=== PATIENT | male | born 1960 | race Caucasian/White ===

== ENCOUNTER → 2020-06-24 | Outpatient (CLI) | payer BC ==
--- NOTE | 2020-06-24 14:16 | Diagnostic Imaging Report ---
INDICATION: Left ankle pain. TIME OF EXAM: 1:59 PM. FINDINGS: Two views of the left ankle were obtained. The ankle mortise is well maintained. The talar dome is smooth. Well-corticated osseous densities adjacent to the medial malleolus are noted, consistent with old avulsions. No acute fracture is identified. There is a moderate-sized plantar calcaneal spur. IMPRESSION: Chronic changes. No acute bony abnormality is detected. Dictated by: Dictated on workstation # [id number]
== END ==
LOC: RAD FS 13:50
PROVIDERS: ATTEND Family Medicine
DX: M25.572 Pain in left ankle and joints of left foot (principal)
CPT/HCPCS: 73600

== ENCOUNTER 2020-12-29 08:42 | Emergency (ER) | payer BC ==
[~2020-12-29] VITALS: Ht 172 cm; Wt 104.0 kg
--- NOTE | 2020-12-29 09:05 | ED Respiratory ---
General Chief Complaint: Respiratory Problems Stated Complaint: SOB; COVID+ Source: patient Exam Limitations: no limitations History of Present Illness Date Seen by Provider: Dec 29, 2020 Time Seen by Provider: 08:50 Initial Comments 60-year-old male presents with increasing shortness of air over the past 1 week. Diagnosed with COVID-19 5 days ago 2 days after having symptoms. Was diagnosed in [facility] and had a phone call from the health department was advised to stay home and told that a local health department in [place] would give him a call, although he never received a call from anyone. Complains of intermittent shortness of air without wheezing, a persistent cough without productive sputum. Denies fever or chills, but does have body aches. Some weakness and fatigue. Medical history significant for hypertension, hypercholesterolemia and sleep apnea Allergies and Home Medications Allergies Coded Allergies: No Known Drug Allergies (Unverified , 12/29/20) Home Medications Ivermectin 3 Mg Tablet, 21 MG PO DAILY PRN Prescribed by: YARELY TOMAS on 12/29/20 1000 Patient Home Medication List Home Medication List Reviewed: Yes Review of Systems Review of Systems Constitutional: No chills, No fever; malaise; No weakness EENTM: no symptoms reported Respiratory: cough, dyspnea on exertion; No hemoptysis, No phlegm; short of breath; No stridor, No wheezing Cardiovascular: No chest pain, No edema, No palpitations, No syncope Gastrointestinal: No abdominal pain; diarrhea, loss of appetite; No nausea, No vomiting Musculoskeletal: No back pain, No joint pain Skin: No change in color, No rash Past Mwjatzw-Coicrq-Dmcuzr Hx Past Med/Social Hx: Reviewed Nursing Past Med/Soc Hx Patient Social History Alcohol Use: Denies Use Smoking Status: Never a Smoker Type Used: Smokeless Tobacco Physical Exam Vital Signs - First Documented 12/29/20 08:57 Temp 37.6 Pulse 78 Resp 18 B/P (MAP) 168/97 (120) Pulse Ox 96 O2 Delivery Room Air Capillary Refill : Height: '" Weight: lbs. oz. kg; BMI Method: General Appearance: WD/WN, no apparent distress Eyes: Bilateral Eye Normal Inspection, Bilateral Eye PERRL, Bilateral Eye EOMI HEENT: PERRL/EOMI, normal ENT inspection Neck: non-tender, supple Respiratory: chest non-tender, lungs clear, normal breath sounds, no resp iratory distress, no accessory muscle use Cardiovascular: regular rate, rhythm, no edema, no JVD Gastrointestinal: normal bowel sounds, non tender, soft, no organomegaly, no pulsatile mass Extremities: normal range of motion, non-tender, no pedal edema Neurologic/Psychiatric: no motor/sensory deficits, alert, normal mood/affect, oriented x 3 Skin: normal color, warm/dry Focused Exam Lactate Level 12/29/20 09:04: Lactic Acid Level 0.87 Lactic Acid Level Laboratory Tests Test 12/29/20 09:04 Lactic Acid Level 0.87 MMOL/L (0.50-2.00) Progress/Results/Core Measures Suspected Sepsis SIRS Temperature: Pulse: Respiratory Rate: Laboratory Tests 12/29/20 09:04: White Blood Count 3.5L Blood Pressure / Mean: 12/29/20 09:04: Lactic Acid Level 0.87 Laboratory Tests 12/29/20 09:04: Creatinine 0.96, Platelet Count 146, Total Bilirubin 0.5 Results/Orders Lab Results Laboratory Tests Test 12/29/20 09:04 Range/Units White Blood Count 3.5 L 4.3-11.0 10^3/uL Red Blood Count 4.84 4.35-5.85 10^6/uL Hemoglobin 14.9 13.3-17.7 G/DL Hematocrit 42 40-54 % Mean Corpuscular Volume 87 80-99 FL Mean Corpuscular Hemoglobin 31 25-34 PG Mean Corpuscular Hemoglobin Concent 35 32-36 G/DL Red Cell Distribution Width 12.5 10.0-14.5 % Platelet Count 146 130-400 10^3/uL Mean Platelet Volume 9.3 7.4-10.4 FL Immature Granulocyte % (Auto) 0 % Neutrophils (%) (Auto) 68 42-75 % Lymphocytes (%) (Auto) 23 12-44 % Monocytes (%) (Auto) 6 0-12 % Eosinophils (%) (Auto) 2 0-10 % Basophils (%) (Auto) 0 0-10 % Neutrophils # (Auto) 2.4 1.8-7.8 X 10^3 Lymphocytes # (Auto) 0.8 L 1.0-4.0 X 10^3 Monocytes # (Auto) 0.2 0.0-1.0 X 10^3 Eosinophils # (Auto) 0.1 0.0-0.3 10^3/uL Basophils # (Auto) 0.0 0.0-0.1 10^3/uL Immature Granulocyte # (Auto) 0.0 0.0-0.1 10^3/uL Sodium Level 140 135-145 MMOL/L Potassium Level 4.1 3.6-5.0 MMOL/L Chloride Level 106 98-107 MMOL/L Carbon Dioxide Level 23 21-32 MMOL/L Anion Gap 11 5-14 MMOL/L Blood Urea Nitrogen 17 7-18 MG/DL Creatinine 0.96 0.60-1.30 MG/DL Estimat Glomerular Filtration Rate > 60 BUN/Creatinine Ratio 18 Glucose Level 110 H 70-105 MG/DL Lactic Acid Level 0.87 0.50-2.00 MMOL/L Calcium Level 9.6 8.5-10.1 MG/DL Corrected Calcium 9.4 8.5-10.1 MG/DL Total Bilirubin 0.5 0.1-1.0 MG/DL Aspartate Amino Transf (AST/SGOT) 64 H 5-34 U/L Alanine Aminotransferase (ALT/SGPT) 115 H 0-55 U/L Alkaline Phosphatase 78 40-136 U/L Troponin I < 0.30 <0.30 NG/ML Pro-B-Type Natriuretic Peptide 30.4 <75.0 PG/ML Total Protein 7.3 6.4-8.2 GM/DL Albumin 4.2 3.2-4.5 GM/DL My Orders Orders - ROVENSTINE,YARELY L DO Cbc With Automated Diff (12/29/20 09:05) Comprehensive Metabolic Panel (12/29/20 09:05) Ed Iv/Invasive Line Start (12/29/20 09:05) Troponin I Fs (12/29/20 09:05) Probnp Fs (12/29/20 09:05) Lactic Acid Analyzer (12/29/20 09:05) Fibrin Degradation Products (12/29/20 09:05) Chest 1 View Ap/Pa Only (12/29/20 09:05) Albuterol/Ipra Inhalation Soln (Duoneb I (12/29/20 09:15) Methylprednisolone Sod Succ (Solu-Medrol (12/29/20 09:15) Svn Small Volume Nebulizer (12/29/20 09:05) Medications Given in ED Current Medications Medications Dose Ordered Sig/Candy Route Start Time Stop Time Status Last Admin Dose Admin Albuterol/ Ipratropium 3 ml ONCE ONCE INH 12/29/20 09:15 12/29/20 09:16 DC 12/29/20 09:15 3 ML Methylprednisolone Sodium Succinate 80 mg ONCE ONCE IV 12/29/20 09:15 12/29/20 09:16 DC 12/29/20 09:14 80 MG Vital Signs/I&O 12/29/20 12/29/20 08:57 10:24 Temp 37.6 36.8 Pulse 78 75 Resp 18 18 B/P (MAP) 168/97 (120) 168/89 (120) Pulse Ox 96 96 O2 Delivery Room Air Room Air Capillary Refill : Progress Note : Progress Note Patient with Covid symptoms for over a week and complaints of shortness of air intermittently. In the ER his vital signs of been stable and his oxygen saturation has been 95% or greater on room air the entire time. His labs are within normal limits and his chest x-ray was clear without any infiltrate. Patient with some symptomatic improvement after DuoNeb and Solu-Medrol. He is out of the window for "outpt BAM tx". Discussed options for outpatient therapy to help with his symptoms, instructions given and prescription sent to [facility]. Patient agrees with this treatment plan will follow up with his PCP as needed and return to the ER if his symptoms progress. Diagnostic Imaging Diagonstic Imaging: Xray Plain Films/CT/US/NM/MRI: chest Comments Date of Exam:12/29/20 CHEST 1 VIEW AP/PA ONLY INDICATION: Shortness of breath, cough, Covid. FINDINGS: The lungs are clear. No infiltrate, effusion or pneumothorax. IMPRESSION: No acute appearing abnormality. Dictated on workstation # [id number] Dict: 12/29/20929 Trans: 12/29/20930 TANIYA [id number] Interpreted by: RUPERT MOTA Electronically signed by: Jamil Impression Primary Impression: COVID-19 Disposition: 01 HOME, SELF-CARE Condition: Stable Departure-Patient Inst. Referrals: NOAH JUSTICE MD (PCP/Family) Primary Care Physician Add. Discharge Instructions: Take the following Over the counter vitamins/ medications as directed: 1. Vitamin D 4,000iu once daily 2. Vitamin C 2,000mg twice daily 3. Quercetin 250mg twice daily 4. Zinc 100mg daily 5. Melatonin 10mg at bedtime 6. Aspirin 325mg daily for 2 weeks (unless your Primary doctor has told you not to take aspirin) All discharge instructions reviewed with patient and/or family. Voiced understanding. Scripts Ivermectin (Ivermectin) 3 Mg Tablet 21 MG PO DAILY PRN, #14 TAB Prov: YARELY TOMAS DO 12/29/20 YARELY TOMAS DO Dec 29, 2020 09:05
[2020-12-29 09:15] LABS: HEMATOCRIT 42 % (40-54); HEMOGLOBIN 14.9 G/DL (13.3-17.7); MEAN CORPUSCULAR HEMOGLOBIN 31 PG (25-34); WHITE BLOOD COUNT 3.5 10^3/uL (4.3-11.0)
[2020-12-29] MEDS ORDERED: methylPREDNISolone 40 MG/ML (Solu-MEDROL) VIAL IV ONE (09:15)
[2020-12-29] MEDS ORDERED: RT-ALBUTEROL/IPRATROPIUM 3 ML (DUONEB) VIAL INH ONE (09:15)
[2020-12-29 09:16] LABS: BASOPHILS % (AUTO) 0 % (0-10); EOSINOPHILS % (AUTO) 2 % (0-10); LYMPHOCYTES # (AUTO) 0.8 X 10^3 (1.0-4.0); LYMPHOCYTES % (AUTO) 23 % (12-44); MEAN CORPUSCULAR HGB CONC 35 G/DL (32-36); MEAN CORPUSCULAR VOLUME 87 FL (80-99); MEAN PLATELET VOLUME 9.3 FL (7.4-10.4); MONOCYTES % (AUTO) 6 % (0-12); NEUTROPHILS # (AUTO) 2.4 X 10^3 (1.8-7.8); NEUTROPHILS % (AUTO) 68 % (42-75); PLATELET COUNT 146 10^3/uL (130-400)
[2020-12-29 09:17] LABS: EOSINOPHILS # (AUTO) 0.1 10^3/uL (0.0-0.3); MONOCYTES # (AUTO) 0.2 X 10^3 (0.0-1.0)
--- NOTE | 2020-12-29 09:32 | Diagnostic Imaging Report ---
INDICATION: Shortness of breath, cough, Covid. FINDINGS: The lungs are clear. No infiltrate, effusion or pneumothorax. IMPRESSION: No acute appearing abnormality. Dictated by: Dictated on workstation # [id number]
[2020-12-29 09:42] LABS: ALANINE AMINOTRANSFERASE 115 U/L (0-55); ALKALINE PHOSPHATASE 78 U/L (40-136); BILIRUBIN,TOTAL 0.5 MG/DL (0.1-1.0); BUN/CREATININE RATIO 18; CALCIUM 9.6 MG/DL (8.5-10.1); CARBON DIOXIDE 23 MMOL/L (21-32); CHLORIDE 106 MMOL/L (98-107); CREATININE SERUM 0.96 MG/DL (0.60-1.30); GFR ESTIMATED > 60; GLUCOSE 110 MG/DL (70-105); POTASSIUM 4.1 MMOL/L (3.6-5.0); SODIUM 140 MMOL/L (135-145); TOTAL PROTEIN 7.3 GM/DL (6.4-8.2)
[2020-12-29 09:43] LABS: ALBUMIN 4.2 GM/DL (3.2-4.5)
[2020-12-29] MEDS ORDERED: IVER3TAB2 PO (10:00)
[2020-12-29 10:24] VITALS: BP 168/89
== END 2020-12-29 10:23 | disposition home or self-care (01) ==
LOC: EDUNIT# 08:42 → ER FS 08:44
DX: U07.1 COVID-19 (principal); Z73.0 Burn-out
CPT/HCPCS: 36415; 71045; 80053; 83605; 83880; 84484; 85025; 85379

== ENCOUNTER → 2021-06-13 | Outpatient (CLI) | payer BC ==
[~2021-06-13] MED LIST: IVER3TAB2 PO
[2021-06-13 08:39] LABS: ALBUMIN 4.3 GM/DL (3.2-4.5); BILIRUBIN,TOTAL 0.8 MG/DL (0.1-1.0); CALCIUM 9.6 MG/DL (8.5-10.1); CREATININE SERUM 1.21 MG/DL (0.60-1.30); POTASSIUM 4.3 MMOL/L (3.6-5.0); TOTAL PROTEIN 6.8 GM/DL (6.4-8.2)
[2021-06-13 12:03] LABS: CHOLESTEROL 141 MG/DL (< 200); HDL CHOLESTEROL 46 MG/DL (40-60); TRIGLYCERIDES 86 MG/DL (<150); VLDL CHOLESTEROL 17 MG/DL (5-40)
== END ==
LOC: LAB FS 07:59
PROVIDERS: ATTEND Registered Nurse Emergency
DX: Z00.00 Encounter for general adult medical examination without abnormal findings (principal)
CPT/HCPCS: 36415; 80053; 80061

== ENCOUNTER → 2022-02-18 | Outpatient (CLI) | payer BC ==
--- NOTE | 2022-02-18 16:03 | Diagnostic Imaging Report ---
INDICATION: Hypertension and shortness of breath. PA and lateral chest Heart size and pulmonary vascularity are normal. Lungs are clear. There are no effusions or pneumothoraces. IMPRESSION: No acute abnormalities in the chest. Dictated by: Dictated on workstation # [id number]
== END ==
LOC: RAD FS 14:34
PROVIDERS: ATTEND Family Medicine
DX: I10 Essential (primary) hypertension (principal); R06.02 Shortness of breath; R06.09 Other forms of dyspnea
CPT/HCPCS: 71046

== ENCOUNTER 2023-03-28 01:10 | Emergency (ER) | payer BC ==
[~2023-03-28] VITALS: Ht 172 cm; Wt 117.9 kg
[2023-03-28] MEDS ORDERED: NITROGLYCERIN 0.4 MG SL TABS BTL 25'S SL PRN (01:30)
[2023-03-28] MEDS ORDERED: ASPIRIN 81 MG CHEW (CHILDREN'S ASA) PO ONE (01:30)
[2023-03-28 01:34] LABS: BASOPHILS # (AUTO) 0.1 10^3/uL (0.0-0.1); BASOPHILS % (AUTO) 1 % (0-10); EOSINOPHILS # (AUTO) 0.5 10^3/uL (0.0-0.3); EOSINOPHILS % (AUTO) 9 % (0-10); HEMATOCRIT 42 % (40-54); HEMOGLOBIN 14.8 g/dL (13.3-17.7); LYMPHOCYTES % (AUTO) 34 % (12-44); MEAN CORPUSCULAR HEMOGLOBIN 33 pg (25-34); MEAN CORPUSCULAR HGB CONC 36 g/dL (32-36); MEAN CORPUSCULAR VOLUME 92 fL (80-99); MEAN PLATELET VOLUME 10.2 fL (9.0-12.2); MONOCYTES # (AUTO) 0.5 10^3/uL (0.0-1.0); MONOCYTES % (AUTO) 8 % (0-12); NEUTROPHILS # (AUTO) 2.8 10^3/uL (1.8-7.8); NEUTROPHILS % (AUTO) 48 % (42-75); PLATELET COUNT 143 10^3/uL (130-400); WHITE BLOOD COUNT 5.9 10^3/uL (4.3-11.0)
[2023-03-28 02:02] LABS: FIBRIN DEGRADATION PRODUCTS 0.31 UG/ML (0.00-0.49); PROTHROMBIN TIME PATIENT 13.4 SEC (12.2-14.7)
[2023-03-28 02:08] LABS: ALANINE AMINOTRANSFERASE 25 U/L (0-55); ALKALINE PHOSPHATASE 78 U/L (40-136); BILIRUBIN,TOTAL 0.6 MG/DL (0.1-1.0); BUN/CREATININE RATIO 17; CALCIUM 10.1 MG/DL (8.5-10.1); CARBON DIOXIDE 24 MMOL/L (21-32); CHLORIDE 107 MMOL/L (98-107); CREATININE SERUM 1.21 MG/DL (0.60-1.30); GFR ESTIMATED 68; GLUCOSE 126 MG/DL (70-105); POTASSIUM 3.5 MMOL/L (3.6-5.0); SODIUM 140 MMOL/L (135-145)
[2023-03-28 02:09] LABS: ALBUMIN 4.1 GM/DL (3.2-4.5); LIPASE 78 U/L (8-78); TOTAL PROTEIN 6.4 GM/DL (6.4-8.2)
--- NOTE | 2023-03-28 02:53 | ED Chest Pain ---
General Chief Complaint: Chest Pain Stated Complaint: CHEST PAIN| RIGHT ARM PAIN Nursing Triage Note: PAITIENT STATES WOKE UP 20 [employer] WITH CHEST PAIN, RT ARM PAIN, AND ALEJANDRO LEG TINGLING. PATIENT STATES CONCERN DUE TO FAMILY AND HX OF STENTS. DENIES SOB Source: patient, RN notes reviewed Exam Limitations: no limitations History of Present Illness Date Seen by Provider: Mar 28, 2023 Time Seen by Provider: 01:13 Initial Comments 62-year-old male patient with history of hypertension, hyperlipidemia, GERD, coronary artery disease a status post stent placement in 2009 presented POV because of chest pain. Patient stated he went to bed around 2200 last night and woke up around 1 AM with pressure substernal chest pain and right arm numbness and rated his pain 5/10 that decreased to 3 or 4 at arrival to ER with rest. Patient denies new shortness of breath, palpitation, nausea, dizziness. Patient stated he has had intermittent episodes of shortness of breath for the last 6 months. Patient had blood pressure of 190s at arrival to ER and stated he did not missed his medication. Allergies and Home Medications Allergies Coded Allergies: No Known Drug Allergies (Unverified , 12/29/20) Patient Home Medication List Home Medication List Reviewed: Yes Amlodipine Besylate (Amlodipine Besylate) 10 Mg Tablet, 10 MG PO DAILY, (Reported) Entered as Reported by: SANTOS VALENZUELA on 03/28/23417 Last Action: New Order Carvedilol (Carvedilol) 12.5 Mg Tablet, 12.5 MG PO BID, (Reported) Entered as Reported by: SANTOS VALENZUELA on 03/28/23417 Last Action: New Order Celecoxib (Celecoxib) 200 Mg Capsule, 200 MG PO DAILY, (Reported) Entered as Reported by: SANTOS VALENZUELA on 03/28/23417 Last Action: New Order Discontinued Medications Ivermectin (Ivermectin) 3 Mg Tablet, 21 MG PO DAILY PRN Discontinued Reason: Referral/FU Appt-Addtl Prescribed by: YARELY TOMAS on 12/29/20 1000 Last Action: Discontinued Review of Systems Review of Systems Constitutional: no symptoms reported EENTM: No Symptoms Reported Respiratory: See HPI Cardiovascular: See HPI Gastrointestinal: No Symptoms Reported Genitourinary: No Symptoms Reported Musculoskeletal: no symptoms reported Skin: no symptoms reported Psychiatric/Neurological: No Symptoms Reported Endocrine: No Symptoms Reported Hematologic/Lymphatic: No Symptoms Reported All Other Systems Reviewed Negative Unless Noted: Yes Past Zwoldta-Ylavym-Bzvkhw Hx Patient Social History Tobacco Use?: Yes Tobacco type used: Cigarettes Smoking Status: Current Someday Smoker Substance use?: No Alcohol Use?: Yes Alcohol type: Beer Alcohol Frequency: Couple times a week Immunizations Up To Date Influenza Vaccine Up-to-Date: Yes; Up-to-Date First/Initial COVID19 Vaccinat: 2021 Second COVID19 Vaccination Ayden: 2021 Seasonal Allergies Seasonal Allergies: No Past Medical History Surgery/Hospitalization HX: HTN, 2008 STENT X2 Surgeries: Yes (UVELECTOMY) Coronary Stent Respiratory: Yes Cardiac: Yes High Cholesterol, Hypertension Neurological: No Genitourinary: No Gastrointestinal: Yes Gastroesophageal Reflux Musculoskeletal: No Endocrine: No HEENT: No Cancer: No Psychosocial: No Integumentary: No Blood Disorders: No Physical Exam Vital Signs Vital Signs - First Documented 03/28/23 01:13 Temp 36.7 Pulse 55 Resp 18 B/P (MAP) 196/106 (136) Pulse Ox 96 O2 Delivery Room Air Capillary Refill : Less Than 3 Seconds Height, Weight, BMI Height: '" Weight: lbs. oz. kg; 39.00 BMI Method: General Appearance: Mild Distress HEENT: PERRL/EOMI, TMs Normal, Normal ENT Inspection, Pharynx Normal Neck: Full Range of Motion, Normal Inspection, Non Tender Respiratory: Chest Non Tender, Lungs Clear, Normal Breath Sounds, No Accessory Muscle Use, No Respiratory Distress Cardiovascular: Regular Rate, Rhythm, No Gallop, No JVD, No Murmur, Normal Peripheral Pulses Gastrointestinal: Normal Bowel Sounds, No Organomegaly, No Pulsatile Mass, Non Tender Extremity: Normal Capillary Refill, Normal Inspection, Normal Range of Motion, Non Tender, No Calf Tenderness, Pedal Edema (Trace bilateral lower extremity edema) Neurologic/Psychiatric: Alert, Oriented x3, No Motor/Sensory Deficits, Normal Mood/Affect Skin: Normal Color, Warm/Dry Lymphatic: No Adenopathy Progress/Results/Core Measures Results/Orders Lab Results Laboratory Tests Test 03/28/23 01:15 03/28/23 03:15 Range/Units White Blood Count 5.9 4.3-11.0 10^3/uL Red Blood Count 4.52 4.30-5.52 10^6/uL Hemoglobin 14.8 13.3-17.7 g/dL Hematocrit 42 40-54 % Mean Corpuscular Volume 92 80-99 fL Mean Corpuscular Hemoglobin 33 25-34 pg Mean Corpuscular Hemoglobin Concent 36 32-36 g/dL Red Cell Distribution Width 12.8 10.0-14.5 % Platelet Count 143 130-400 10^3/uL Mean Platelet Volume 10.2 9.0-12.2 fL Immature Granulocyte % (Auto) 0 % Neutrophils (%) (Auto) 48 42-75 % Lymphocytes (%) (Auto) 34 12-44 % Monocytes (%) (Auto) 8 0-12 % Eosinophils (%) (Auto) 9 0-10 % Basophils (%) (Auto) 1 0-10 % Neutrophils # (Auto) 2.8 1.8-7.8 10^3/uL Lymphocytes # (Auto) 2.0 1.0-4.0 10^3/uL Monocytes # (Auto) 0.5 0.0-1.0 10^3/uL Eosinophils # (Auto) 0.5 H 0.0-0.3 10^3/uL Basophils # (Auto) 0.1 0.0-0.1 10^3/uL Immature Granulocyte # (Auto) 0.0 0.0-0.1 10^3/uL Prothrombin Time 13.4 12.2-14.7 SEC INR Comment 1.0 0.8-1.4 Activated Partial Thromboplast Time 27 24-35 SEC D-Dimer 0.31 0.00-0.49 UG/ML Sodium Level 140 135-145 MMOL/L Potassium Level 3.5 L 3.6-5.0 MMOL/L Chloride Level 107 98-107 MMOL/L Carbon Dioxide Level 24 21-32 MMOL/L Anion Gap 9 5-14 MMOL/L Blood Urea Nitrogen 20 H 7-18 MG/DL Creatinine 1.21 0.60-1.30 MG/DL Estimat Glomerular Filtration Rate 68 BUN/Creatinine Ratio 17 Glucose Level 126 H 70-105 MG/DL Calcium Level 10.1 8.5-10.1 MG/DL Corrected Calcium 10.0 8.5-10.1 MG/DL Total Bilirubin 0.6 0.1-1.0 MG/DL Aspartate Amino Transf (AST/SGOT) 21 5-34 U/L Alanine Aminotransferase (ALT/SGPT) 25 0-55 U/L Alkaline Phosphatase 78 40-136 U/L Troponin I < 0.30 < 0.30 <0.30 NG/ML Pro-B-Type Natriuretic Peptide 65.9 <125.0 PG/ML Total Protein 6.4 6.4-8.2 GM/DL Albumin 4.1 3.2-4.5 GM/DL Lipase 78 8-78 U/L My Orders Orders - ERASMO BAIRD MD Cbc With Automated Diff (03/28/23 01:23) Chest 1 View Ap/Pa Only (03/28/23 01:23) Ekg Tracing (03/28/23:) Comprehensive Metabolic Panel (03/28/23:23) Protime With Inr (03/28/23:23) Partial Thromboplastin Time (03/28/23:23) O2 (03/28/23:23) Monitor-Rhythm Ecg Trace Only (03/28/23 01:23) Aspirin Chewable Tablet (Baby Aspirin Ch (03/28/23 01:30) Nitroglycerin 0.4 Mg Btl 25's (Nitrostat (03/28/23 01:30) Ed Iv/Invasive Line Start (03/28/23 01:23) Troponin I Fs (03/28/23 01:23) Probnp Fs (03/28/23 01:23) Lipase (03/28/23 01:23) Fibrin Degradation Products (03/28/23 01:23) Troponin I Fs (03/28/23 03:15) Medications Given in ED Current Medications Medications Dose Ordered Sig/Candy Route Start Time Stop Time Status Last Admin Dose Admin Aspirin 324 mg ONCE ONCE PO 03/28/23 01:30 03/28/23 01:31 DC 03/28/23 01:41 324 MG Nitroglycerin 0.4 mg UD PRN SL 03/28/23 01:30 03/28/23 03:52 DC 03/28/23 01:42 0.4 MG Vital Signs/I&O 03/28/23 03/28/23 01:13 03:52 Temp 36.7 36.7 Pulse 55 52 Resp 18 18 B/P (MAP) 196/106 (136) 141/93 Pulse Ox 96 95 O2 Delivery Room Air Room Air Blood Pressure Mean: 136 Progress Progress Note : Progress Note Patient with NAVIN score of and complaining of chest pain prior to arrival to ER and elevation of blood pressure of 190s and 180s. Patient had unremarkable physical exam and EKG. Patient treated with aspirin and nitro with resolving his pain. CBC, CMP, D-dimer, chronic, lipase, troponin was ordered and reviewed by me and did not show abnormal finding. Repeat troponin after 2 hours was negative. Patient advised to follow-up with his outer diameter technician in 2 or 3 days and continue current home medication. Blood pressure was 130s at time of discharge. Initial ECG Impression Date: Mar 28, 2023 Initial ECG Impression Time: 01:17 Initial ECG Rate: 51 Initial ECG Rhythm: S.Jose M Comment EKG interpreted by me and showed sinus bradycardia at rate of 51, SC interval of 160 and QT of 460 and QTc of 393, QRS duration of 120, possible right ventricular conduction delay, no acute ST and T wave elevation. Diagnostic Imaging Diagonstic Imaging: Xray Plain Films/CT/US/NM/MRI: chest Comments 1 view chest x-ray interpreted by me and did not show acute new finding. Departure Impression Primary Impression: Chest pain Qualified Codes: R07.9 - Chest pain, unspecified Disposition: 01 HOME, SELF-CARE Condition: Improved Departure-Patient Inst. Decision time for Depature: 03:45 Referrals: NOAH JUSTICE MD (PCP/Family) Primary Care Physician Patient Instructions: Chest Pain, Adult ED Add. Discharge Instructions: Follow-up with your outer diameter technician in 2 to 3 days for more heart evaluation Return to ER as needed Continue home medication All discharge instructions reviewed with patient and/or family. Voiced understanding. ERASMO BAIRD MD Mar 28, 2023 02:53
[2023-03-28 03:52] VITALS: BP 141/93
[2023-03-28] MEDS ORDERED: CELE-63 PO (04:18)
[2023-03-28] MEDS ORDERED: AMLO-251 PO (04:18)
[2023-03-28] MEDS ORDERED: CARV12.53 PO (04:18)
--- NOTE | 2023-03-28 09:19 | Diagnostic Imaging Report ---
CHEST 1 VIEW AP/PA ONLY Indication: Chest pain. Comparison: 02/18/2022 Findings: No focal airspace disease in the visualized lungs. No pleural effusion or pneumothorax. Normal cardiomediastinal silhouette. Impression: 1. No acute cardiopulmonary process by portable radiography. Dictated by: Dictated on workstation # [id number]
== END 2023-03-28 03:52 | disposition home or self-care (01) ==
LOC: EDUNIT# 01:10 → ER FS 01:12
DX: R07.2 Precordial pain (principal); R00.1 Bradycardia, unspecified; R60.0 Localized edema; I10 Essential (primary) hypertension; F17.210 Nicotine dependence, cigarettes, uncomplicated; Z95.5 Presence of coronary angioplasty implant and graft
CPT/HCPCS: 36415; 71045; 80053; 83690; 83880; 84484; 85025; 85379; 85610; 85730; 93041